=== PATIENT | female | born 1980 | race Caucasian/White ===

== ENCOUNTER → 2021-03-11 | Outpatient (CLI) | payer BC ==
[~2021-03-11] MED LIST: CYCL10TA45 PO
--- NOTE | 2021-03-11 16:48 | Diagnostic Imaging Report ---
FINDINGS: Fell down stairs. Pain since. EXAMINATION: Lumbar spine, 3 views, on 03/11/2021. FINDINGS: There is a levoconvex scoliotic deformity of the spine. No subluxations or compression deformities are appreciated. Clips are incidentally noted in the right upper quadrant. IMPRESSION: Chronic findings with no acute process appreciated. Dictated by: Dictated on workstation # [id number]
--- NOTE | 2021-03-11 17:23 | Diagnostic Imaging Report ---
Cervical spine 4:09 Indication: Neck pain 5 views were obtained. There are no prior studies available for comparison. The lateral view does show slight anterior angulation of the upper 4 cervical segments. This is of uncertain etiology but could be related to muscle spasm and/or positioning. The vertebral body heights are within normal limits. There is mild narrowing of the disc space at C5-C6 and C4-C5. The other vertebral space are fairly well-maintained. The oblique views fail to show any sign of any significant bony foraminal narrowing. There is no fracture identified. There is no sign of retropharyngeal edema. The lung apices are clear. Impression: 1. There is no evidence for an acute bony abnormality. 2. There is mild degenerative disc disease C4-C5 and C5-C6. 3. If clinical concern regarding an underlying abnormality persists, then MRI would be recommended for further study. 1. Dictated by: Dictated on workstation # [id number]
== END ==
LOC: RAD 15:41
PROVIDERS: ATTEND Chiropractor
DX: M50.321 Other cervical disc degeneration at C4-C5 level (principal); M54.50 Low back pain, unspecified; W10.8XXA Fall (on) (from) other stairs and steps, initial encounter
CPT/HCPCS: 72050; 72100

== ENCOUNTER 2022-02-06 12:22 | Emergency (ER) | payer BC, OTHER ==
[~2022-02-06] VITALS: Ht 167 cm; Wt 70.0 kg
[2022-02-06] MEDS ORDERED: SUCCINYLCHOLINE INJ 100 MG/5 ML SYR/VIAL INJ ONE (12:33)
[2022-02-06] MEDS ORDERED: ROCURONIUM 10 MG/ML 5 ML SYRINGE IV ONE (12:33)
[2022-02-06] MEDS ORDERED: fentaNYL INJ 100 MCG/2 ML AMP IV ONE (12:33)
[2022-02-06] MEDS ORDERED: ETOMIDATE IV SOLN 20 MG/10 ML VIAL IV ONE (12:33)
[2022-02-06] MEDS ORDERED: MIDAZOLAM 5 MG/5 ML (VERSED) VIAL IVP ONE ×2 (12:33→14:00)
[2022-02-06] MEDS ORDERED: PROPOFOL DRIP (ICU) 100 ML IV ONE (12:41)
[2022-02-06 12:51] LABS: BILIRUBIN,URINE NEGATIVE (NEGATIVE); CLARITY,URINE CLOUDY; COLOR,URINE YELLOW; GLUCOSE, URINE (UA) NEGATIVE (NEGATIVE); KETONES,URINE TRACE (NEGATIVE); LEUKOCYTE ESTERASE ,URINE NEGATIVE (NEGATIVE); NITRITE,URINE NEGATIVE (NEGATIVE); PH,URINE 5.5 (5-9); PROTEIN,URINE 2+ (NEGATIVE)
[2022-02-06 12:52] LABS: HEMATOCRIT 38 % (35-52); HEMOGLOBIN 12.4 g/dL (11.5-16.0); MEAN CORPUSCULAR HEMOGLOBIN 29 pg (25-34); MEAN CORPUSCULAR HGB CONC 33 g/dL (32-36); MEAN CORPUSCULAR VOLUME 88 fL (80-99); MEAN PLATELET VOLUME 9.3 fL (9.0-12.2); PLATELET COUNT 377 10^3/uL (130-400); WHITE BLOOD COUNT 15.8 10^3/uL (4.3-11.0)
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
[2022-02-06 13:03] LABS: ALBUMIN 4.2 GM/DL (3.2-4.5); CHLORIDE 105 MMOL/L (98-107); POTASSIUM 2.9 MMOL/L (3.6-5.0); SODIUM 140 MMOL/L (135-145)
[2022-02-06 13:04] LABS: BACTERIA,URINE NEGATIVE /HPF; CALCIUM 9.2 MG/DL (8.5-10.1); RBC,URINE 25-50 /HPF; WBC,URINE 0-2 /HPF
[2022-02-06 13:05] LABS: GLUCOSE 168 MG/DL (70-105); TOTAL PROTEIN 6.7 GM/DL (6.4-8.2)
[2022-02-06 13:06] LABS: CARBON DIOXIDE 20 MMOL/L (21-32)
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
[2022-02-06 13:07] LABS: AMPHETAMINE SCREEN, URINE NEGATIVE (NEGATIVE); BARBITURATE SCREEN URINE NEGATIVE (NEGATIVE); BENZODIAZEPINES SCREEN URINE NEGATIVE (NEGATIVE); BILIRUBIN,TOTAL 0.9 MG/DL (0.1-1.0); CANNABINOID SCREEN, URINE NEGATIVE (NEGATIVE); COCAINE SCREEN URINE NEGATIVE (NEGATIVE); METHADONE STAT NEGATIVE (NEGATIVE); OPIATE SCREEN URINE NEGATIVE (NEGATIVE); OXYCODONE STAT NEGATIVE (NEGATIVE); PROPOXYPHENE STAT NEGATIVE (NEGATIVE); TRICYCLIC ANTIDEPRESSANTS SCRE NEGATIVE (NEGATIVE)
[2022-02-06 13:09] LABS: ALKALINE PHOSPHATASE 56 U/L (40-136); CREATININE SERUM 0.86 MG/DL (0.60-1.30); GFR ESTIMATED 86
[2022-02-06 13:10] LABS: BILIRUBIN,DIRECT 0.4 MG/DL (0.0-0.3); BILIRUBIN,INDIRECT 0.5 MG/DL; BUN/CREATININE RATIO 12
[2022-02-06 13:12] LABS: ALANINE AMINOTRANSFERASE 27 U/L (0-55); MAGNESIUM 1.9 MG/DL (1.6-2.4)
[2022-02-06] MEDS ORDERED: CATHETER FLUSH 10 ML SYR IV PRN (13:15)
[2022-02-06] MEDS ORDERED: HOLD METFORMIN - RECEIVED CONTRAST 20 ML VIAL IV SCH (13:15)
[2022-02-06] MEDS ORDERED: NS 100 ML (IVPB) BAG IV ONE (13:15)
[2022-02-06] MEDS ORDERED: IOHEXOL 350 MG/ML 100 ML (OMNIPAQUE 350) VIAL IV ONE (13:15)
[2022-02-06] MEDS ORDERED: fentaNYL INJ 100 MCG/2 ML AMP IVP STA (13:24)
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
[2022-02-06 13:34] VITALS: BP 106/67
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
[2022-02-06] MEDS ORDERED: MIDAZOLAM 5 MG/5 ML (VERSED) VIAL ONE (13:58)
[2022-02-06 14:23] LABS: FIBRIN DEGRADATION PRODUCTS 16.49 UG/ML (0.00-0.49); INR 1.1 (0.8-1.4); PROTHROMBIN TIME PATIENT 14.4 SEC (12.2-14.7)
[2022-02-06 14:44] VITALS: BP 116/62
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
--- NOTE | 2022-02-06 17:32 | Progress Note-Post Operative ---
Post-Operative Progess Note Surgeon (s)/Litigation Docket Manager (s) Surgeon GARRET DUARTE DO Litigation Docket Manager: SHERIDAN Monahan Pre-Operative Diagnosis scalp laceration Post-Operative Diagnosis same plus Galeal disruption Procedure & Operative Findings Date of Procedure 02/06/22 Procedure Performed/Findings Closure of intermediate wound, appx 21cm of scalp Anesthesia Type general Estimated Blood Loss Estimated blood loss (mL): 20ml Specimens/Packing Specimens Removed none GARRET DUARTE DO Feb 06, 2022 17:32
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
== END 2022-02-06 14:44 | disposition short-term general hospital (02) ==
LOC: ER 12:32 → MERGE 12:32 → ER 14:44
DX: S06.30AA Unspecified focal traumatic brain injury with loss of consciousness status unknown, initial encounter (principal); S01.01XA Laceration without foreign body of scalp, initial encounter; S12.100A Unspecified displaced fracture of second cervical vertebra, initial encounter for closed fracture; S32.009A Unspecified fracture of unspecified lumbar vertebra, initial encounter for closed fracture; S42.001A Fracture of unspecified part of right clavicle, initial encounter for closed fracture; V09.20XA Pedestrian injured in traffic accident involving unspecified motor vehicles, initial encounter
CPT/HCPCS: 12005; 12035; 31500; 51702; 70450; 71045; 71260; 72125; 74177; 80048; 80076; 80306; 81000; 83605; 83735; 84100; 84703; 85027; 85379; 85384; 85610; 85730; 86850; 86900; 86901; 86920; 93041; 99291; 99292; G0390; G0480; 36415; 80320

== ENCOUNTER → 2022-03-11 | Outpatient (RCR) | payer BC | END | disposition home or self-care (01) | PROVIDERS: ATTEND Neurological Surgery | DX: S06.0XAD Concussion with loss of consciousness status unknown, subsequent encounter (principal); R41.89 Other symptoms and signs involving cognitive functions and awareness; X58.XXXD Exposure to other specified factors, subsequent encounter ==